=== PATIENT | male | born 1950 | race Two or more races ===

== ENCOUNTER 2017-06-10 08:36 | Day surgery (SDC) | payer MEDICARE, BC ==
[~2017-06-10] VITALS: Ht 168.9 cm; Wt 78.0 kg
[~2017-06-10 08:36] MED LIST: ASPI-1265 PO; CARV-50 PO; FINA5TAB11 PO; FLO0.4C PO; FOLI1CAP7 PO; FOLIC ACID PO; FURO-150 PO; HYDR-4069 PO; LANTUS SUBCUT; SEVE800T8 PO
[2017-06-10 09:10] VITALS: BP 152/70
[2017-06-10] MEDS ORDERED: normal saline 1000ml 1,000 ML IV PRN (09:25)
[2017-06-10 09:31] LABS: BASOPHILS % (AUTO) 0.3 % (0-1); EOSINOPHILS # (AUTO) 0.3 X10'3 (0-0.9); EOSINOPHILS % (AUTO) 3.6 % (0-6); HEMOGLOBIN 11.1 g/dl (14.0-17.9); LYMPHOCYTES # (AUTO) 0.8 X10'3 (1.1-4.8); LYMPHOCYTES % (AUTO) 10.9 % (21-51); MEAN CORPUSCULAR HEMOGLOBIN 33.5 PG (27.0-31.0); MEAN CORPUSCULAR HGB CONC 34.6 % (33.0-36.5); MEAN CORPUSCULAR VOLUME 96.6 FL (78-98); MEAN PLATELET VOLUME 8.1 FL (7.4-10.4); MONOCYTES # (AUTO) 0.4 X10'3 (0-0.9); MONOCYTES % (AUTO) 5.5 % (2-12); NEUTROPHILS # (AUTO) 6.2 X10'3 (1.8-7.7); NEUTROPHILS % (AUTO) 79.7 % (42-75); PLATELET COUNT 225 X10'3 (140-440); RED BLOOD COUNT 3.32 X10'6 (4.70-6.10); RED CELL DISTRIBUTION WIDTH 16.4 % (11.5-14.5); WHITE BLOOD COUNT 7.8 X10'3 (4.5-11.0)
[2017-06-10] MEDS ORDERED: LEVO100T PO (09:36)
[2017-06-10] MEDS ORDERED: HYDR-4069 PO (09:36)
[2017-06-10] MEDS ORDERED: CINA30TA PO (09:36)
[2017-06-10] MEDS ORDERED: iohexol 300mg/ml 100ml inj. ONE (10:14)
[2017-06-10] MEDS ORDERED: LIDOcaine 1%/PF (10mg/ml) 5ml vial ONE (10:14)
[2017-06-10] MEDS ORDERED: heparin 1,000 UNITS/NS 500ml 500 ML ONE (10:24)
[2017-06-10 11:50] VITALS: BP 179/78
[2017-06-10] MEDS ORDERED: normal saline 1000ml 1,000 ML IV SCH (11:55)
[2017-06-10 12:05] VITALS: BP 186/66
[2017-06-10 12:20] VITALS: BP 187/84
[2017-06-10 12:35] VITALS: BP 190/88
[2017-06-10 12:50] VITALS: BP 184/77
== END 2017-06-10 13:05 | disposition home or self-care (01) ==
LOC: SSTAY O 08:36
PROVIDERS: ATTEND Radiology Diagnostic Radiology
DX: T82.858A Stenosis of other vascular prosthetic devices, implants and grafts, initial encounter (principal); E11.22 Type 2 diabetes mellitus with diabetic chronic kidney disease; I13.2 Hypertensive heart and chronic kidney disease with heart failure and with stage 5 chronic kidney disease, or end stage renal disease; N18.6 End stage renal disease; I50.9 Heart failure, unspecified; I25.10 Atherosclerotic heart disease of native coronary artery without angina pectoris; E78.5 Hyperlipidemia, unspecified; G47.33 Obstructive sleep apnea (adult) (pediatric); N40.0 Benign prostatic hyperplasia without lower urinary tract symptoms; Z89.422 Acquired absence of other left toe(s); Z72.89 Other problems related to lifestyle; Z87.11 Personal history of peptic ulcer disease; Z95.5 Presence of coronary angioplasty implant and graft; Z87.891 Personal history of nicotine dependence; Z79.4 Long term (current) use of insulin; Z79.82 Long term (current) use of aspirin; Z89.511 Acquired absence of right leg below knee; Z99.2 Dependence on renal dialysis; Z79.899 Other long term (current) drug therapy; Z98.890 Other specified postprocedural states; Y83.2 Surgical operation with anastomosis, bypass or graft as the cause of abnormal reaction of the patient, or of later complication, without mention of misadventure at the time of the procedure; Y92.89 Other specified places as the place of occurrence of the external cause
CPT/HCPCS: 36415; 36902; 82948; 85025; C1769; C1894; J1644; J2001; J7030; Q9967; A4620

== ENCOUNTER 2017-07-31 08:21 | Day surgery (SDC) | payer MEDICARE, BC ==
[2017-07-30 10:26] LABS: BASOPHILS % (AUTO) 0.1 % (0-1); EOSINOPHILS # (AUTO) 0.3 X10'3 (0-0.9); EOSINOPHILS % (AUTO) 3.2 % (0-6); HEMOGLOBIN 11.6 g/dl (14.0-17.9); LYMPHOCYTES # (AUTO) 0.6 X10'3 (1.1-4.8); LYMPHOCYTES % (AUTO) 7.2 % (21-51); MEAN CORPUSCULAR HEMOGLOBIN 33.6 PG (27.0-31.0); MEAN CORPUSCULAR HGB CONC 34.2 % (33.0-36.5); MEAN CORPUSCULAR VOLUME 98.3 FL (78-98); MEAN PLATELET VOLUME 8.2 FL (7.4-10.4); MONOCYTES # (AUTO) 0.6 X10'3 (0-0.9); MONOCYTES % (AUTO) 6.9 % (2-12); NEUTROPHILS % (AUTO) 82.6 % (42-75); PLATELET COUNT 228 X10'3 (140-440); RED BLOOD COUNT 3.46 X10'6 (4.70-6.10); RED CELL DISTRIBUTION WIDTH 14.5 % (11.5-14.5); WHITE BLOOD COUNT 8.5 X10'3 (4.5-11.0)
[2017-07-30 10:37] LABS: INR 1.1 INR; PARTIAL THROMBOPLASTIN TIME 28 SECONDS (22-32)
[2017-07-30 10:42] LABS: ALANINE AMINOTRANSFERASE 19 U/L (12-78); ALBUMIN 3.3 G/DL (3.4-5.0); ALBUMIN/GLOBULIN RATIO 0.7 (1.1-1.5); ALKALINE PHOSPHATASE 222 IU/L (46-116); ANION GAP 12 (8-16); ASPARTATE AMINO TRANSFERASE 20 U/L (10-37); BILIRUBIN,TOTAL 0.6 MG/DL (0.1-1.0); BLOOD UREA NITROGEN 59 MG/DL (7-18); BUN/CREATININE RATIO 6.8 (5.4-32.0); CALCIUM 8.4 MG/DL (8.5-10.1); CHLORIDE 98 MMOL/L (99-107); CHOL/HDL RATIO 4.5 (0.00-4.99); CHOLESTEROL 112 MG/DL (0-200); CREATININE 8.65 MG/DL (0.60-1.10); GLUCOSE 101 MG/DL (70-104); HDL CHOLESTEROL 25 MG/DL (35-60); LDL CHOLESTEROL 50 MG/DL (50-100); POTASSIUM 4.6 MMOL/L (3.5-5.1); SODIUM 138 MMOL/L (135-145); TOTAL CARBON DIOXIDE 28.4 MMOL/L (24-32); TRIGLYCERIDES 248 MG/DL (20-135); eGFR 6 ML/MIN
[~2017-07-31] VITALS: Ht 167.6 cm; Wt 76.8 kg
[2017-07-31] VITALS (10 sets, daily range): BP systolic 142–192; BP diastolic 58–90
[~2017-07-31 08:21] MED LIST changes: +CINA30TA PO; -FOLIC ACID PO; +LEVO100T PO
[2017-07-31] MEDS ORDERED: sod bicarbonate 150mEq in D5W 1,150 ML IV ONE (08:55)
[2017-07-31] MEDS ORDERED: acetylcysteine 200 MG/ml 4ml vial PO PRN (09:00)
[2017-07-31] MEDS ORDERED: diphenhydrAMINE 25mg capsule PO PRN (09:00)
[2017-07-31] MEDS ORDERED: LORazepam 0.5 MG tablet PO PRN (09:00)
[2017-07-31] MEDS ORDERED: HYDR100T27 PO (09:48)
[2017-07-31] MEDS ORDERED: CARV-50 PO (09:48)
[2017-07-31] MEDS ORDERED: nitroGLYCERIN-Tridil 50MG/D5W 250 ML IV ONE (10:17)
[2017-07-31] MEDS ORDERED: iohexol 350MG/ML 100ml bottle IV ONE (10:18)
[2017-07-31] MEDS ORDERED: iohexol 350 MG/ML 50ML vial IV ONE (10:18)
[2017-07-31] MEDS ORDERED: fentaNYL/PF 50MCG/1 ML 2ML syringe ONE (10:18)
[2017-07-31] MEDS ORDERED: heparin 1,000unit/ml 10ml vial 10 ML ONE (10:18)
[2017-07-31] MEDS ORDERED: LIDOcaine 1% w/EPI 1:100,000 30ml vial (MDV) ONE (10:18)
[2017-07-31] MEDS ORDERED: midazolam 2 mg/2 ml injection ONE (10:18)
[2017-07-31 10:59] LABS: CHOL/HDL RATIO 5.2 (0.00-4.99); CHOLESTEROL 125 MG/DL (0-200); HDL CHOLESTEROL 24 MG/DL (35-60); LDL CHOLESTEROL 53 MG/DL (50-100); TRIGLYCERIDES 303 MG/DL (20-135)
[2017-07-31] MEDS ORDERED: diltiazem 5mg/ml 5ml inj. IV ONE (11:11)
[2017-07-31] MEDS ORDERED: hydrALAZINE 20mg/ml inj. IV ONE (11:25)
[2017-07-31] MEDS ORDERED: hydrALAZINE 20mg/ml inj. IV PRN (12:10)
[2017-07-31] MEDS ORDERED: cyclobenzaprine 10mg tablet PO PRN (12:10)
== END 2017-07-31 15:55 | disposition home or self-care (01) ==
LOC: SSTAY O 08:21
PROVIDERS: ATTEND Internal Medicine Cardiovascular Disease
DX: I25.118 Atherosclerotic heart disease of native coronary artery with other forms of angina pectoris (principal); E11.22 Type 2 diabetes mellitus with diabetic chronic kidney disease; I13.2 Hypertensive heart and chronic kidney disease with heart failure and with stage 5 chronic kidney disease, or end stage renal disease; N18.6 End stage renal disease; I50.9 Heart failure, unspecified; E78.5 Hyperlipidemia, unspecified; G47.33 Obstructive sleep apnea (adult) (pediatric); N40.0 Benign prostatic hyperplasia without lower urinary tract symptoms; I42.8 Other cardiomyopathies; Z86.79 Personal history of other diseases of the circulatory system; Z99.2 Dependence on renal dialysis; Z89.511 Acquired absence of right leg below knee; Z79.82 Long term (current) use of aspirin; Z79.4 Long term (current) use of insulin; Z87.891 Personal history of nicotine dependence; Z79.891 Long term (current) use of opiate analgesic; Z72.89 Other problems related to lifestyle; Z89.422 Acquired absence of other left toe(s); Z95.5 Presence of coronary angioplasty implant and graft; Z79.899 Other long term (current) drug therapy; Z98.890 Other specified postprocedural states
CPT/HCPCS: 36415; 80053; 80061; 82948; 85025; 85610; 85730; 93005; 93458; A6257; C1760; C1769; J0360; J1644; J3490; J7030; Q0163; Q9967; 99152; 99153; A4620; J2250; J3010

== ENCOUNTER 2022-10-13 13:43 | Emergency (ER) | payer BC, MEDICARE ==
[~2022-10-13] VITALS: Ht 167.6 cm; Wt 76.8 kg
[~2022-10-13 13:43] MED LIST changes: +ATROPINE SULFATE 0.4 MG/ML injection (OR only) ONE; -HYDR-4069 PO; +HYDR100T27 PO; +calcium chloride 100 MG/1 ML inj IV ONE; +epiNEPHrine 0.1mg/ml 10ml syringe ONE; +sod chloride 0.9% 10ml flush syringe IV ONE; +sodium bicarbonate (8.4%) 1 mEq/ml syringe ONE
--- NOTE | 2022-10-13 13:55 | NUR ---
Emergency resuscitation was not successful. Patient was pronounced by Dr. Pitt. Asystole on the monitor. 14:14 - adult care manager was called [phone] -[facility] was called
--- NOTE | 2022-10-13 14:13 | NUR ---
ATTEMPTED TO CONTACT SPOUSE, EBER SALAMANCA, AT [phone]. NO ANSWER ON PHONE AND NO OPTION TO LEAVE VOICE MAIL. ATTEMPTED TO CALL PATIENT HOME PHONE NUMBER AT [phone]. NO ANSWER AND PHONE NUMBER NOT IN SERVICE AT PRESENT.
[2022-10-13 14:44] VITALS: PULSE 0
--- NOTE | 2022-10-13 14:57 | NUR ---
13:41 Patient arrived to ER via EMS on prehospital cardiac arrest. CPR in progress upon arrival. Patient was in a dialysis center having dialysis when patient collapsed. EMS arrived at the scene to initiate CPR. 13:42 - patient was intubated by Dr. Pitt size 8.0. He has dialysis access in place on his right arm. CPR continued and emergency medications were given (see Code blue sheet for details)
--- NOTE | 2022-10-13 15:08 | NUR ---
ATTEMPTED TO CONTACT SON, TARAH SALAMANCA, AT [phone],BUT NO ANSWER AND VOICE MAILBOX IS NOT SET-UP. UNABLE TO LEAVE MESSAGE. ATTEMPTED TO CONTACT [facility] AT [phone], NO ANSWER.
--- NOTE | 2022-10-13 15:59 | NUR ---
Received a phone call from the deputy commissioner Marti Kamara, answered her questions. She asked me if I can ask the son about patient's PCP information and to call her back at [phone] Addendum: 10/13/22 at 1604 by ALFONSO Per deputy commissioner Caitlyn, patient is okay to release to [facility].
== END 2022-10-13 17:50 ==
LOC: ER 13:43
DX: I46.9 Cardiac arrest, cause unspecified (principal); I50.9 Heart failure, unspecified; N18.9 Chronic kidney disease, unspecified; Z79.82 Long term (current) use of aspirin; Z79.899 Other long term (current) drug therapy; Z79.84 Long term (current) use of oral hypoglycemic drugs
CPT/HCPCS: 31500; 92950; 99285; J0171; J3490; 94760